=== PATIENT | male | born 1980 | race Caucasian/White ===

== ENCOUNTER 2016-05-26 07:03 | Emergency (ER) | payer OTHER ==
[2016-05-26] MEDS ORDERED: IOPAMIDOL 370 (76%) 100 ML VIAL IV ONE (07:04)
[2016-05-26 07:58] LABS: SPECIFIC GRAVITY 1.015 (1.001-1.030); URINE APPEARANCE CLEAR; URINE BILIRUBIN NEGATIVE (NEGATIVE); URINE BLOOD NEGATIVE (NEGATIVE); URINE COLOR YELLOW; URINE GLUCOSE (UA) NEGATIVE (NEGATIVE); URINE LEUKOCYTE ESTERASE NEGATIVE (NEGATIVE); URINE NITRITE NEGATIVE (NEGATIVE); URINE PROTEIN NEGATIVE (NEGATIVE); URINE UROBILINOGEN NORMAL (0-1 mg/dl)
--- NOTE | 2016-05-26 07:59 | RAD ---
05/26/2016 7:53 AM CHEST - 2 VIEWS History: Chest pain since yesterday Comparison: None Findings: Two views of the chest are obtained. The lungs demonstrate nodularity within the right mid lung, midclavicular line. This is not well-visualized on the lateral film. Lungs are otherwise clear. The cardiomediastinal silhouette is unremarkable.. The osseous structures are intact.. IMPRESSION: Nodular density within the right mid lung, midclavicular line. While findings could relate to sequela of granulomatous disease, other possibilities exist. Consideration for follow-up CT should be made in the absence of any prior examinations. Alternatively follow-up chest x-ray in 3-6 months could be obtained given the patient's young age..
[2016-05-26] MEDS ORDERED: LACTATED RINGERS 1,000 ML ONE (08:29)
[2016-05-26 08:33] LABS: ABSOLUTE NEUTROPHIL COUNT 7.8 K/mm3 (1.8-7.7); BASO # 0.1 K/mm3 (0.0-0.2); BASO % 0.9 % (0.2-1.0); EOS # 0.2 (0.0-0.5); EOS % 1.7 % (0.9-2.9); HEMOGLOBIN 18.4 gm/l (14.0-18.0); IMM NEUT # 0.1 K/mm3 (0-0.2); IMM NEUT% 0.8 % (0-1); LYMPH # 1.7 (1.0-4.8); LYMPH % 15.4 % (15-45); MEAN CORPUSCULAR HGB CONC 31.7 g/dl (33.0-37.0); MEAN PLATELET VOLUME 10.6 fl (7.4-10.4); MONO % 9.5 % (4-12); NEUT % 71.7 % (43-75); PLATELET COUNT 198 K/mm3 (130-400); RED CELL DISTRIBUTION WIDTH 13.9 % (11.5-14.5)
[2016-05-26 08:57] LABS: ALB/GLOB RATIO 1.4 (>1.0); ALBUMIN 4.6 gm/dL (3.5-5.7); CALCIUM 9.8 mg/dL (8.6-10.3)
--- NOTE | 2016-05-26 09:14 | CT ---
ADDENDUM #1 [address] prior CTs from [facility] are available for comparison, dated 11/30/2006 and 03/11/2005. The areas of nodular density throughout the chest are again identified on prior examination, and unchanged. The osseous lesion within the sixth posterior rib is also stable. No further follow-up is necessary for these findings. The remainder of the exam stands as is. ORIGINAL REPORT INDICATION: Right chest pain. History of testicular cancer. Nodule seen on plain films. COMPARISON: Plain films earlier on the same day. TECHNIQUE: Helical scan mode CT of the Thorax with 2 mm collimated images were obtained after uneventful intravenous contrast administration of 80 of [id number]. Sagittal and coronal reformations with high resolution lung algorithm images were also created at this time. Maximal intensity projection images and 3-D volumetric sequences were created at a separate, dedicated workstation. DLP: 795.3 FINDINGS: There are no pulmonary arterial filling defects. Dependent and atelectatic changes are present. Bilateral small subpleural pulmonary nodules are present measuring upward 4-5 mm. Pleural tag is seen at the right posterior upper lobe on image 24 measuring upward 8 mm. No pleural effusion. The central airways are widely patent. There is no axillary, mediastinal or hilar adenopathy. The heart and great vessels opacify normally. Diffuse fatty infiltration to the liver with sparing in the gallbladder fossa is likely present. Remainder of the abdomen is unremarkable. There is an area of sclerosis within the right sixth posterior rib corresponding to the nodular density as seen on recent plain film study. No other lytic or sclerotic lesions are present. IMPRESSION: 1. Negative for pulmonary embolism. 2. Multifocal subpleural pulmonary nodules and pleural tag as above. Given the patient's history, findings are worrisome for possible metastatic disease though benign etiology such as granulomatous disease exposure could be considered. Per Fleischner Society criteria, follow-up in 3-6 months, and 18-24 months would be recommended if no change. As the patient undoubtably has prior studies at an outside institution, if these could be digitized into the [facility] PACS, a direct comparison could be made and addendum to this report generated as clinically warrented. 3. The area of nodular density as seen on chest x-ray, corresponds to a sclerotic focus within the right sixth rib. While this could represent an area of metastasis, a bone island could also have a similar appearance. Correlation with any prior imaging would be recommended. Findings were called to Dr. Jackson at approximately 0 911 hours on 05/25/2016.
[2016-05-26] MEDS ORDERED: KETOROLAC TROMETHAMINE 30 MG/ML 1 ML VIAL ONE (09:54)
== END 2016-05-26 10:23 | disposition home or self-care (01) ==
LOC: ED 07:03
DX: R07.9 Chest pain, unspecified (principal); M89.9 Disorder of bone, unspecified; Z85.47 Personal history of malignant neoplasm of testis; R91.8 Other nonspecific abnormal finding of lung field; Z88.8 Allergy status to other drugs, medicaments and biological substances
CPT/HCPCS: 85025; 80053; 81003; 84484; 71020; 71275; 99284 ×2; 96374; 96361; 93005; J1885; J7120; Q9967